=== PATIENT | female | born 1970 | race African-American/Black ===

== ENCOUNTER 2021-04-04 09:57 | Day surgery (SDC) | payer OTHER ==
[~2021-04-04] VITALS: Ht 166.4 cm; Wt 77.0 kg
[~2021-04-04 09:57] MED LIST: CHOL10004 PO; HYDROmorphone 2 MG/ML VIAL IVP PRN; IV RINGERS,LACTATED 1000ML 1,000 ML IV SCH; MORPHINE SULFATE 2 MG/ML VIAL. IVP PRN; MULT-735 PO; PROCHLORPERAZINE 10 MG/2 ML VIAL. IVP PRN; ceFAZolin SODIUM IV Push 1 GM VIAL. IVP PRN; fentaNYL PF VIAL 100 MCG/2 ML VIAL IVP PRN
[2021-04-04 10:31] VITALS: BP 135/87
[2021-04-04] MEDS ORDERED: MIDAZOLAM HCL/PF 2 MG/2 ML VIAL. ONE (10:39)
[2021-04-04] MEDS ORDERED: LIDOCAINE 2% PF 5 ML VIAL. ONE (10:41)
[2021-04-04] MEDS ORDERED: ONDANSETRON PF 4 MG/2 ML VIAL. ONE (10:41)
[2021-04-04] MEDS ORDERED: DEXAMETHASONE SOD PHOS 4 MG/ML VIAL ONE (10:41)
[2021-04-04] MEDS ORDERED: PROPOFOL 10 MG/ML (20ML) VIAL. IV ONE (10:41)
[2021-04-04] MEDS ORDERED: LIDOCAINE 1%/EPI 1:100,000 20 ML VIAL. ONE (11:58)
[2021-04-04] MEDS ORDERED: LIDOCAINE 1%/EPI 1:100,000 20 ML VIAL. INJ ONE (12:42)
[2021-04-04] MEDS ORDERED: HYDR-2761 PO (13:00)
--- NOTE | 2021-04-04 13:02 | DISCH ---
DISCHARGE INSTRUCTIONS Condition on Discharge Condition on Discharge: Stable Activity After Discharge Activity Instructions for Disc: Activity as tolerated Diet after Discharge Diet after Discharge: Regular Wound Incision Care Wound/Incision Care: Other, see below (keep dressing clean and dry X 72 hours, may then remove and shower) Follow-Up Follow up with: Dr Doan in office in 2 weeks, call for appointment [phone] TAMARA DOAN MD Apr 04, 2021 13:02
--- NOTE | 2021-04-04 13:05 | PDOC4 ---
Operative Note Operative Note Operative Note: Preoperative Diagnosis: Back mass Postoperative Diagnosis: Same Procedure: Excision of back mass Surgeon: Aron Filing Or Registry Clerk: Brittany ANDREWS Anesthesia: Local MAC EBL: 10 mL Specimen: Back mass to pathology, 3.5 x 2 cm Drains: None Complications: None Indication: The patient is a 50-year-old female who has had a recurrent subcutaneous mass in the midportion of the back. She requests excision. The risks of surgery were discussed which include bleeding, infection, recurrence, pain, scar tissue, potential need for additional surgery or procedure. She understands and would like to proceed. Description: The patient was taken the operating room and placed supine in the operating table. Monitored anesthesia care was provided. The patient was then laid in the left lateral decubitus. The right back was prepped with ChloraPrep and draped in a standard surgical manner. The skin overlying the mass was infiltrated with 1% lidocaine with epinephrine. An elliptical incision was made including a portion of skin to be excised. Sharp dissection was used to free the mass from the surrounding tissues. There was a sac present consistent with a moderate sized epidermal cyst. The sac extended into the subcutaneous tissues to the level of the muscle. With sharp dissection the entire sac and skin tyrel dges were fully excised and sent to pathology. The excised portion measured 3.5 x 2 cm. Hemostasis was achieved with cautery. The subcutaneous tissue was approximated with 3-0 Vicryl. The skin was closed with 4 Monocryl. A sterile dressing was then applied. The patient tolerated the procedure well and was sent to the recovery room in stable condition. At the end of the case all counts were correct. TAMARA DOAN MD Apr 04, 2021 13:05
[2021-04-04] MEDS ORDERED: HYDROcodone/APAP 5/325MG 1 TAB TABLET ONE (13:29)
[2021-04-04 13:30] VITALS: BP 109/71
[2021-04-04] MEDS ORDERED: HYDROcodone/APAP 5/325MG 1 TAB TABLET PO ONE (13:30)
--- NOTE | 2021-04-06 17:16 | PATHOLOGY ---
[facility] Accession Number: [id number] . 01 Material submitted: . back - BACK MASS . 01 Clinical history: . BACK MASS EXCISION MASS BACK . 02 Diagnosis: Skin and subcutaneous tissue, back mass excision: - Epidermal inclusion cyst, with focal erosion of cyst lining with chronic and granulomatous inflammation. (JPM:jessa; 04/06/2021) S 04/06/2021 1428 Local . 02 Comment: There is no evidence of malignancy. (JPM:jessa; 04/06/2021) . 02 Electronically signed: . Klever Grant MD, Pathologist NPI- [id number] . 01 Gross description: . Received in formalin labeled "Mcrae, Olga and back mass". Received is an un-oriented elliptical excision of brown skin measuring 3.5 x 1.0 and excised to 3.5 cm. The subcutaneous tissue has a palpable adkins-durham lesion. The surgical margin is inked black. Sectioning reveals a cyst measuring 3.0 x 2.5 x 2.5 cm filled with white-yellow grumous material located 0.5 cm below the skin surface and extends to the black inked margin. The specimen is representatively submitted in cassette A1.([facility]; 04/05/2021) [facility] 04/06/2021 1426 Local . 02 Pathologist provided ICD-10: L72.0, L98.9 . 02 CPT . 631277 Specimen Comment: A courtesy copy of this report has been sent to [phone] Specimen Comment: Report sent to Performed at: [address], [place], [place] [id number] MD Tariq Enriquez MD Phone: [phone] Performed at: [address] [id number] MD Klever Grant MD Phone: [phone]
== END 2021-04-04 14:00 | disposition home or self-care (01) ==
LOC: SURG 09:57
PROVIDERS: ATTEND Surgery
DX: R22.2 Localized swelling, mass and lump, trunk (principal); L98.9 Disorder of the skin and subcutaneous tissue, unspecified; L72.0 Epidermal cyst; G47.30 Sleep apnea, unspecified; Z79.899 Other long term (current) drug therapy; Z98.890 Other specified postprocedural states
CPT/HCPCS: 11404; 81025; A4364; A4930; A6402; J0690; J2250; J2704; J3490; A4452; J1100; J2405